=== PATIENT | female | born 1955 | race Caucasian/White ===

== ENCOUNTER 2020-12-13 10:18 | Outpatient (CLI) | payer MEDICARE, SELFPAY ==
--- NOTE | ~2020-12-13 | MM_ITS ---
EXAMINATION: MM screening [facility] BI w staci HISTORY: Screening mammogram TECHNIQUE: Craniocaudal and mediolateral oblique 3-D tomosynthesis images were obtained and synthetic 2-D images were generated. CAD analysis was submitted and interpreted. COMPARISON: Serial mammographic images dating back to 06/22/2008 BREAST PARENCHYMAL COMPOSITION: There are scattered areas of fibroglandular density. FINDINGS: There is architectural distortion in the posterior mid to upper breasts bilaterally, likely related to history of prior reportedly benign breast biopsies, stable in appearance since 06/22/2008 No interval suspicious mass or new architectural distortion or significant new or developing density is noted otherwise.. IMPRESSION: 1. No mammographic evidence of malignancy. 2. Recommend routine screening mammography in one year. BI-RADS Category 2: Benign finding(s). Reviewed, dictated and finalized at location A.
== END 2020-12-13 10:19 | disposition home or self-care (01) ==
PROVIDERS: Visit Provider Nurse Practitioner
DX: Z12.31 Encounter for screening mammogram for malignant neoplasm of breast (principal)
CPT/HCPCS: 77063; 77067

== ENCOUNTER 2022-05-01 07:35 | Outpatient (CLI) | payer MEDICARE, SELFPAY ==
--- NOTE | ~2022-05-01 | DEXA_ITS ---
Bone Density Report Name: TRACY MONTAÑO Age: 67 Sex: Female Ethnicity: White Date of : 1955 Indication: osteopenia; height loss; postmenopausal Referring Provider: TOMAS ALLISON Study: Bone densitometry was performed. Exam Date: May 01, 2022 Accession number: [id number] Bone Density: Region BMD T-score Z-score Classification AP Spine(L1-L4) 0.907 -1.3 0.6 Osteopenia Femoral Neck (Left) 0.594 -2.3 -0.7 Osteopenia Total Hip (Left) 0.699 -2.0 -0.7 Osteopenia Femoral Neck (Right) 0.610 -2.2 -0.5 Osteopenia Total Hip (Right) 0.717 -1.8 -0.5 Osteopenia Total Hip Mean 0.708 -1.9 -0.6 Osteopenia World Health Organization criteria for BMD impression classify patients as: Normal (T-score at or above -1.0), Osteopenia (T-score between -1.0 and -2.5), or Osteoporosis (T-score at or below -2.5). 10-year Fracture Risk(1): Major Osteoporotic Fracture 12% Hip Fracture 2.3% Reported Risk Factors: [place] (), Neck BMD=0.594, BMI=26.8 (1) FRAX(R) Version 3.08. Fracture probability calculated for an untreated patient. Fracture probability may be lower if the patient has received treatment. Previous Exams: Region Exam Age BMD T-score BMD Change BMD Change Date g/cm2 vs Baseline vs Previous AP Spine (L1-L4) 05/01/2022 67 0.907 -1.3 -0.026 (-2.7%) -0.049 (-5.2%) 06/02/2019 64 0.957 -0.8 0.024 (2.5%)* -0.004 (-0.5%) 05/23/2017 62 0.961 -0.8 0.028 (3.0%)* 0.028 (3.0%)* 04/18/2015 59 0.933 -1.0 Total Hip(Left) 05/01/2022 67 0.699 -2.0 -0.055 (-7.3%) -0.087 (-11.1% 06/02/2019 64 0.786 -1.3 0.032 (4.3%)* 0.053 (7.2%)* 05/23/2017 62 0.734 -1.7 -0.020 (-2.7%) -0.020 (-2.7%) 04/18/2015 59 0.754 -1.5 Total Hip(Right) 05/01/2022 67 0.717 -1.8 -0.026 (-3.5%) -0.057 (-7.4%) 06/02/2019 64 0.774 -1.4 0.031 (4.2%)* 0.045 (6.2%)* 05/23/2017 62 0.729 -1.7 -0.014 (-1.8%) -0.014 (-1.8%) 04/18/2015 59 0.743 -1.6 *Denotes significance at 95% confidence level, LSC for AP Spine = 0.022 g/cm2, LSC for Total Hip = 0.027 g/cm2 Clinical Information Provided by Patient: Has used the following medications: Vitamin D Patient maximum height was 61 Menopause Age: 43 No regular weight bearing exercise Drinks caffeinated beverages Onset of menses at age 11 Number of children 1 Impression: The patient has low bone mass, based on the Left Femoral Neck T-scor
--- NOTE | ~2022-05-01 | MM_ITS ---
EXAMINATION: MM screening [facility] BI w staci HISTORY: .. TECHNIQUE: Craniocaudal and mediolateral oblique 3-D tomosynthesis images were obtained and synthetic 2-D images were generated. CAD analysis was submitted and interpreted. COMPARISON: Serial bilateral screening mammograms dating back to 05/23/2017 BREAST PARENCHYMAL COMPOSITION: There are scattered areas of fibroglandular density. FINDINGS: Chronic stable fibroglandular asymmetry; history of bilateral benign biopsies 30 years ago. There is no evidence of suspicious mass, calcification, or architectural distortion to suggest malig teo in either breast. There has been no suspicious interval change. IMPRESSION: 1. No mammographic evidence of malignancy. 2. Recommend routine screening mammography in one year. BI-RADS Category 2: Benign finding(s). Reviewed, dictated and finalized at location A. D SECURITY PROFESSIONAL
== END 2022-05-01 07:36 | disposition home or self-care (01) ==
PROVIDERS: PCP Family Medicine; Visit Provider Obstetrics & Gynecology Gynecology
DX: Z12.31 Encounter for screening mammogram for malignant neoplasm of breast (principal); Z78.0 Asymptomatic menopausal state; M85.88 Other specified disorders of bone density and structure, other site; M85.852 Other specified disorders of bone density and structure, left thigh; M85.851 Other specified disorders of bone density and structure, right thigh
CPT/HCPCS: 77063; 77067; 77080

== ENCOUNTER 2022-07-31 09:46 | Outpatient (CLI) | payer MEDICARE, SELFPAY ==
--- NOTE | ~2022-07-31 | NM_ITS ---
EXAMINATION: NM stress w perf spect multi DATE: 07/31/2022 11:53 INDICATION: Chest pain, unspecified. TECHNIQUE: Rest images were obtained following intravenous administration of 9.9 mCi Tc99m tetrofosmi n (Qlibri). The patient performed an exercise activity. At peak exercise, 31.7 mCi Tc99m tetrofosmin (Myoview) was administered intravenously, and stress images were obtained. Data was reconstructed in to short axis and horizontal and vertical long axis SPECT images. Gated SPECT images were also obtain ed. COMPARISON: None. FINDINGS: There is no definite reversible or fixed perfusion abnormality to suggest ischemia or infar ction. There is no segmental wall motion abnormality. Left ventricular ejection fraction measures > 70%. IMPRESSION: 1. No definite ischemia or infarct. 2. Normal left ventricular ejection fraction measuring >70%. Reviewed, dictated and finalized at location A. T METAL PRODUCTION WORKER
--- NOTE | 2022-07-31 10:04 | EST_ITS ---
Patient Info Name: Lory Griffin Age: 67 years : 1955 Gender: Female Ht: 60 in Wt: 137 lbs BSA: 1.64 m2 HR: 60 bpm BP: 131 / 66 mmHg Heart Rhythm: Sinus Rhythm Exam Date: 07/31/2022 10:50 AM Exam Location: [facility] Stress Patient Status: Outpatient Admit Date: 07/31/2022 Staff Ordering Physician: Linda Alves MD Attending Provider: Linda Alves MD Exercise Technologist: Malinda Hernandez CT Exercise Physician: Brandyn Randle DO Exam Type: CA stress test treadmill w NM Study Info Indications R07.9 - Chest pain, unspecified A nuclear stress test was performed. Summary 1. 1. Abnormal Sukhdeep exercise stress test for ischemic ST changes by ECG criteria. 2. 2. Stable hemodynamics throughout the test. 3. 3. Nuclear scan to follow and will be reported separately. Please correlate with it. 4. 4. Patient informed of the above results. Protocol: Sukhdeep Stress ECG Details Stage: REST Duration (min): 0 min : 53 sec Speed (mph): 0.0 Grade (%): 0 HR (bpm): 64 SBP (mmHg): 131 DBP (mmHg): 66 METS: --- Stage: REST Duration (min): 4 min : 31 sec Speed (mph): 0.0 Grade (%): 0 HR (bpm): 58 SBP (mmHg): 131 DBP (mmHg): 66 METS: --- Stage: STAGE 1 Duration (min): 1 min : 0 sec Speed (mph): 1.7 Grade (%): 10 HR (bpm): 88 SBP (mmHg): 131 DBP (mmHg): 66 METS: --- Stage: STAGE 1 Duration (min): 2 min : 0 sec Speed (mph): 1.7 Grade (%): 10 HR (bpm): 116 SBP (mmHg): 131 DBP (mmHg): 66 METS: --- Stage: STAGE 1 Duration (min): 3 min : 0 sec Speed (mph): 1.7 Grade (%): 10 HR (bpm): 108 SBP (mmHg): 200 DBP (mmHg): 74 METS: --- Stage: STAGE 2 Duration (min): 1 min : 0 sec Speed (mph): 2.5 Grade (%): 12 HR (bpm): 117 SBP (mmHg): 188 DBP (mmHg): 75 METS: --- Stage: STAGE 2 Duration (min): 2 min : 0 sec Speed (mph): 2.5 Grade (%): 12 HR (bpm): 129 SBP (mmHg): 194 DBP (mmHg): 72 METS: --- Stage: STAGE 2 Duration (min): 3 min : 0 sec Speed (mph): 2.5 Grade (%): 12 HR (bpm): 137 SBP (mmHg): 194 DBP (mmHg): 72 METS: --- Stage: STAGE 3 Duration (min): 0 min : 5 sec Speed (mph): 3.4 Grade (%): 14 HR (bpm): 137 SBP (mmHg): 194 DBP (mmHg): 72 METS: --- Stage: RECOVERY Duration (min): 0 min : 54 sec Speed (mph): 0.0 Grade (%): 0 HR (bpm): 115 SBP (mmHg): 192 DBP (mmHg): 77 METS: --- Stage: RECOVERY Duration (min): 1 min : 54 sec Speed (mph): 0.0 Grade (%): 0 HR (bpm): 89 SBP (mmHg): 192 DBP (mmHg): 77 METS: --- Stage: RECOVERY Duration (min): 2 min : 55 sec Speed (mph): 0.0 Grade (%): 0 HR (bpm): 83 SBP (mmHg): 169 DBP (mmHg): 79 METS: --- Stage: RECOVERY Duration (min): 3 min : 4 sec Speed (mph):
== END 2022-07-31 09:47 | disposition home or self-care (01) ==
PROVIDERS: PCP Family Medicine; Visit Provider Family Medicine
DX: R07.9 Chest pain, unspecified (principal); Z82.49 Family history of ischemic heart disease and other diseases of the circulatory system
CPT/HCPCS: 78452; 93017; A9502

== ENCOUNTER 2024-05-18 07:51 | Outpatient (CLI) | payer MEDICARE, SELFPAY ==
--- NOTE | ~2024-05-18 | XR_ITS ---
EXAMINATION: XR lumbar spine min 4V DATE: 05/18/2024 08:23 INDICATION: Low back pain, unspecified. TECHNIQUE: 5 views of lumbar spine were obtained. COMPARISON: Lumbar spine radiographs 03/20/2019 FINDINGS: There is 9 degrees levocurvature of thoracolumbar spine. There is 3 mm anterolisthesis of L 4 on L5. There is mild chronic anterior wedging of T11 vertebral body. There is severely decreased di sc height at L1-L2 and L5-S1. There is multilevel facet joint osteoarthritis, severe bilaterally at L 4-L5 and L5-S1. IMPRESSION: 1. Severe lower lumbar spondylosis. Reviewed, dictated and finalized at location A. ODITY MANAGEMENT SPECIALIST
--- NOTE | ~2024-05-18 | XR_ITS ---
XR hip LT min 2V Ordering provider: Linda Alves MD History: . M25.552 - Pain in left hip . Comparison: None. FINDINGS: BONES: No acute fracture or dislocation. HIP JOINT SPACES: Mild to moderate osteoarthritic changes. He SACROILIAC JOINT SPACES/LUMBAR SPINE: The sacroiliac joint spaces are normal. Mild degenerative fisher es of the visualized lower lumbar spine. PUBIC SYMPHYSIS: Pubic symphysitis. SOFT TISSUES: Normal. IMPRESSION: No acute osseous abnormality pelvis and left hip. Mild to moderate left hip osteoarthritic changes. Reviewed, dictated and finalized at location A. ECTION CLERK
--- NOTE | ~2024-05-18 | XR_ITS ---
XR sacroiliac joints min 3V Ordering provider: Linda Alves MD History: . NON TRAUMA LBP AND LEFT HIP PAIN . Comparison: None. FINDINGS: BONES: No acute fracture or dislocation. JOINTS: The bilateral sacroiliac joint spaces appear well maintained. No bony fusion of the sacroilia c joints or bony erosions. Mild osteoarthritic changes of both hips. SOFT TISSUES: Unremarkable. Pubic symphysitis. Mild degenerative changes of the spine. IMPRESSION: NO ACUTE OSSEOUS ABNORMALITY. NORMAL SACROILIAC JOINTS. Reviewed, dictated and finalized at location A. LE STRAP DRUM OPERATOR
== END 2024-05-18 07:52 | disposition home or self-care (01) ==
PROVIDERS: PCP Family Medicine; Visit Provider Family Medicine
DX: M47.816 Spondylosis without myelopathy or radiculopathy, lumbar region (principal); M16.12 Unilateral primary osteoarthritis, left hip; M53.3 Sacrococcygeal disorders, not elsewhere classified; M54.50 Low back pain, unspecified
CPT/HCPCS: 72110; 72202; 73502

== ENCOUNTER 2025-05-03 14:52 | Outpatient (CLI) | payer MEDICARE, SELFPAY ==
--- NOTE | ~2025-05-03 | DEXA_ITS ---
Bone Density Report Name: TRACY MONTAÑO Age: 70 Sex: Female Ethnicity: White Date of : 1955 Indication: osteopenia; height loss; Referring Provider: TOMAS ALLISON Study: Bone densitometry was performed. Exam Date: May 03, 2025 Accession number: [id number] Bone Density: Region BMD T-score Z-score Classification AP Spine(L1-L4) 0.921 -1.1 1.0 Osteopenia Femoral Neck (Left) 0.596 -2.3 -0.5 Osteopenia Total Hip (Left) 0.709 -1.9 -0.4 Osteopenia Femoral Neck (Right) 0.582 -2.4 -0.6 Osteopenia Total Hip (Right) 0.716 -1.9 -0.3 Osteopenia Total Hip Mean 0.713 -1.9 -0.4 Osteopenia World Health Organization criteria for BMD impression classify patients as: Normal (T-score at or above -1.0), Osteopenia (T-score between -1.0 and -2.5), or Osteoporosis (T-score at or below -2.5). 10-year Fracture Risk(1): Major Osteoporotic Fracture 13% Hip Fracture 3.1% Reported Risk Factors: [place] (), Neck BMD=0.582, BMI=27.3 (1) FRAX(R) Version 3.08. Fracture probability calculated for an untreated patient. Fracture probability may be lower if the patient has received treatment. Previous Exams: Region Exam Age BMD T-score BMD Change BMD Change Date g/cm2 vs Baseline vs Previous AP Spine (L1-L4) 05/03/2025 70 0.921 -1.1 -0.012 (-1.2%) 0.014 (1.5%) 05/01/2022 67 0.907 -1.3 -0.026 (-2.7%) -0.049 (-5.2%) 06/02/2019 64 0.957 -0.8 0.024 (2.5%)* -0.004 (-0.5%) 05/23/2017 62 0.961 -0.8 0.028 (3.0%)* 0.028 (3.0%)* 04/18/2015 59 0.933 -1.0 Total Hip(Left) 05/03/2025 70 0.709 -1.9 -0.045 (-6.0%) 0.009 (1.4%) 05/01/2022 67 0.699 -2.0 -0.055 (-7.3%) -0.087 (-11.1% 06/02/2019 64 0.786 -1.3 0.032 (4.3%)* 0.053 (7.2%)* 05/23/2017 62 0.734 -1.7 -0.020 (-2.7%) -0.020 (-2.7%) 04/18/2015 59 0.754 -1.5 Total Hip(Right) 05/03/2025 70 0.716 -1.9 -0.026 (-3.6%) -0.001 (-0.1%) 05/01/2022 67 0.717 -1.8 -0.026 (-3.5%) -0.057 (-7.4%) 06/02/2019 64 0.774 -1.4 0.031 (4.2%)* 0.045 (6.2%)* 05/23/2017 62 0.729 -1.7 -0.014 (-1.8%) -0.014 (-1.8%) 04/18/2015 59 0.743 -1.6 *Denotes significance at 95% confidence level, LSC for AP Spine = 0.022 g/cm2, LSC for Total Hip = 0.027 g/cm2 Clinical Information Provided by Patient: Has used the following medications: Vitamin D, Calcium Patient maximum height was 61 Menopause Age: 43 No regular weight bearing exercise Drinks caffeinated beverages Onset of menses at age 11 Number of children 1 Impression: The patient has low bone mass, based on the Right Femoral Neck T-score. The patient has an estimated ten-year risk of hip fracture of 3.1% and an estimated ten-year risk of major fracture of 13%, based on the WHO FRAX algorithm. No significant bone loss was observed. Discussion: BONE DENSITY IS LOW AT ONE OR MORE SKELETAL SITES. THE PATIENT'S BMD AND CLINICAL RISK FACTORS CONTRIBUTE TO THIS PATIENT'S INCREASED RISK OF FRACTURE. This patient's lowest T-score is low at one or more skeletal sites. It meets the World Health Organization's (WHO) criteria for ?low bone mass? (T-score between -1.0 and -2.5). The patient's 10-year risk of hip fracture as calculated by FRAX exceeds the threshold where pharmacological therapy is recommended by the National Osteoporosis Foundation (NOF). However, all treatment decisions require clinical judgment and consideration of individual patient factors, including patient preferences, comorbidities, previous drug use, risk factors not captured in the FRAX model (e.g., frailty, falls, vitamin D deficiency, increased bone turnover, interval significant decline in bone density) and possible under or overestimation of fracture risk by FRAX. The patient should follow a healthful lifestyle (good nutrition with adequate calcium and vitamin D, and appropriate weight-bearing exercise). Follow-Up: Consider a repeat BMD and Vertebral Fracture Assessment (VFA) exam in 2 years or sooner if medically necessary, to reassess this patient's status. Reported by: LISA on 05/03/2025 3:51:00 PM. Reviewed, dictated and finalized at location A.
--- NOTE | ~2025-05-03 | MM_ITS ---
EXAMINATION: MM screening [facility] BI w staci HISTORY: Screening TECHNIQUE: Craniocaudal and mediolateral oblique 3-D tomosynthesis images were obtained and synthetic 2-D images were generated. CAD analysis was submitted and interpreted. COMPARISON: Comparison to multiple prior studies sequentially, with oldest reviewed study dated 04/24/2016. BREAST PARENCHYMAL COMPOSITION: Dense: The breasts are heterogeneously dense, which may obscure small masses FINDINGS: There is no evidence of suspicious mass, calcification, or architectural distortion to suggest malignancy in either breast. There has been no suspicious interval change. IMPRESSION: 1. No mammographic evidence of malignancy. 2. Recommend routine screening mammography in one year. BI-RADS Category 1: Negative Reviewed, dictated and finalized at location B. EL WEIGHER
--- OUTSIDE RECORDS SUMMARY | 2025-05-03 14:57 | XMS_ITS | Clinical Summary ---
Author Organization [facility] Address [facility] [place] [address] Care Team Providers Care Sheet Metal Welder Name Role Phone Linda Alves MD Primary Care Provider [phone] Nelson Stacy NP Unavailable [phone] Alfredo Galvan MD Unavailable [phone] Allergies Active Allergy Reactions Criticality Noted Date Comments Ciprofloxacin Nausea only Reaction: Nausea, Erythromycin Nausea only,Headache Reaction: Nausea, Headache, Medications simvastatin (ZOCOR) 20 mg tablet Active ibuprofen (ADVIL,MOTRIN) 200 mg tab/cap PRN Activ e hydroCHLOROthia zide (HYDRODIURIL) 25 mg tablet Active fluticasone propionate (FLONASE) 50 mcg/actuation nasal spray Active cholecalciferol (VITAMIN D-3) 2,000 unit tablet Active famotidine (PEPCID) 10 mg tablet Take 1 tablet (10 mg total) by mouth 2 (two) times a day Active omeprazole (PriLOSEC) 40 mg capsule Take 1 capsule (40 mg total) by mouth daily 08/11/2021 Active sertraline (ZOLOFT) 25 mg tablet Take 1 tablet (25 mg total) by mouth nightly 10/30/2021 Active ALPRAZolam (XANAX) 0.25 mg tablet Take 1 tablet (0.25 mg total) by mouth 2 (two) times a day 03/27/2024 Active Active Problems Problem Noted Date Diagnosed Date Trochanteric bursitis of left hip 03/11/2025 Spondylosis of lumbar region without myelopathy or radiculopathy 06/10/2024 Lumbosacral spondylosis without myelopathy 05/27 Sacroiliitis 05/27/2024 Cholesteatoma of attic of right ear 11/10/2021 Chronic mucoid otitis media of right ear 021 Otitis media 10/23/2016 Assessment & Plan (12/18/2019 1:17 PM CDT): Right ear tube replaced. RTC one year. Mixed conductive and sensori neural hearing loss of both ears 10/23/2016 Arthritis 08/25/2015 Chronic pain 08/25/2015 Osteoarthritis of cervical spine 08/25/2015 Cervical radiculopathy 08/25/2015 Pain of upper extremity 08/10/2015 Cervicalgia 06/29/2015 Notalgia 06/29/2015 Arthralgia of shoulder 04/01/2015 Sensorineural hearing loss (SNHL) of both ears 0 11/09/2009 Cholesteatoma of middle ear and mastoid 11/10/19 10 Encounters Date Type Department Care Team Description 04/14/2025 8:00 AM CDT Office Visit [facility]) - [facility] Medicine ENT [id number] [place] [address] Medical Office Building [address] [place] [address] Vane Tovar NP Impacted cerumen of right ear (Primary Dx); History of ear surgery 04/06/2025 8:23 AM CDT - 04/06/2025 11:59 PM CDT Hospital Encounter [facility] [address] [place] [phone] Nelson Stacy NP Sacroiliitis (Primary Dx) Discharge Disposition: Discharge to home or self care 04/05/2025 Telephone [facility] Medicine Otolaryngology [facility] [place] [address] Kim Roland MS 03/17/2025 Telephone [facility] Pain Management [address] [place] [address] [phone] [place] [address] Halley Brar 03/16/2025 6:51 AM CDT - 03/16/2025 11:59 PM CDT Hospital Encounter [facility] [id number] [place] [id number] Alfredo Galvan MD Sacroiliitis Discharge Disposition: Discharge to home or self care 03/11/2025 9:21 AM CDT - 03/11/2025 11:59 PM CDT Hospital Encounter [facility] [address] [place] [phone] Nelson Stacy NP Sacroiliitis (Primary Dx); Lumbosacral spondylosis without myelopathy; Trochanteric bursitis of left hip Discharge Disposition: Discharge to home or self care from Last 3 Months Surgical History Surgery Date Site/Laterality Comments OK DELIVERY ONLY 06/24/1983 - 06/23/1984 Section - (Added by TW Conv) OK UNLISTED PROCEDURE INNER EAR Inner Ear Surgery - (Added by TW Conv) KNEE SURGERY Right Knee Surgery Right - (Added by TW Conv) KNEE SURGERY Left Knee Surgery Left - (Added by TW Conv) BREAST LUMPECTOMY Bilateral mid Medical History Medical History Date Comments Hypertension High cholesterol Arthritis Anxiety GERD (gastroesophageal reflux disease) Family History Medical History Relation Name Comments Heart disease Father Sacha Family history of cardiac disorder - (Added by TW Conv) Arthritis Mother Rebeka Family history of arthritis - (Added by TW Conv) Heart disease Mother Rebeka Family history of cardiac disorder - (Added by TW Conv) Heart disease Other 1 Family history of cardiac disorder - Relation: Grandparent (Added by TW Conv) Diabetes Other 2 Family history of diabetes mellitus - Relation: Grandparent (Added by TW Conv) Hypertension Other 3 Family history of hypertension - Relation: Grandparent (Added by TW Conv) Blood Clot Sister 1 Family history of blood clots - (Added by TW Conv) Diabetes Sister 2 Family history of diabetes mellitus - (Added by TW Conv) Relation Name Status Comments Father Sacha Mother Rebeka Other 1 Other 2 Other 3 Sister 1 Sister 2 Social History Tobacco Use Types Packs/Day Years Used Date Smoking Tobacco: Never Tobacco Cessation:Counseling Given: Not Answered AUDIT-C Answer Date Recorded Q1: How often do you have a drink containing alc ohol? Monthly or less 05/27/2024 Q2: How many drinks containi ng alcohol do you have on a typical day when you are drinking? 1 or 2 05/27/2024 Q3: How often do you have si x or more drinks on one occasion? Monthly 05/27/2024 Comments No Sex and Gender Information Value Date Recorded Sex Assigned at Not on file Legal Sex Female 6:02 PM BUDGET AND POLICY ANALYST Gender Identity Not on file Sexual Orientation Not on file Last Filed Vital Signs Vital Sign Reading Time Taken Comments Blood Pressure 148/93 04/06/2025 8:28 AM CDT Pulse 69 04/06/2025 8:28 AM CDT Temperature 36.8 C (98.3 F) 03/16/2025 7:01 AM CDT Respiratory Rate 14 04/06/2025 8:28 AM CDT Oxygen Saturation 96% 04/06/2025 8:28 AM CDT Inhaled Oxygen Concentration - - Weight 63 kg (139 lb) 04/14/2025 8:10 AM CDT Height 152.4 cm (5') 04/14/2025 8:10 AM CDT Body Mass Index 27.15 04/14/2025 8:10 AM CDT Plan of Treatment Health Maintenance Due Date Last Done Comments Breast Cancer Screening-Mammogram 1955 Colon Cancer Screening-Colonoscopy 1955 Depression Screening 1955 Hepatitis C Screening 1955 Osteoporosis Screening-Bone Density Scan 1955 DTaP/Tdap/Td Vaccine (1 - Tdap) 1966 Pneumococcal vaccine 65+ (1 of 1 - PCV) 2005 Zoster Vaccine (1 of 2) 2005 Well Visit 65+ 2020 Influenza Vaccine (#1) 2025 9, 04/10/2018, 04/27/2016, Additional history exists Fall Risk Assessment 04/06/2026 04/06/2025 Hepatitis B Screening Completed 11/16/2010 , 06/29/2010, 05/22/2010 Procedures Procedure Name Priority Date/Time Associated Diagnosis Comments PAIN MGMT IMAGING SI JOINT LEFT Schedule Routine, Read Routine (OP Routine) 03/16/2025 7:17 AM CDT Sacroiliitis from Last 3 Months Results * Imaging SI Joint Injection Left ([id number]) (03/16/2025 7:17 AM CDT) Narrative RAD_PACS_CH - 03/16/2025 7:18 AM CDT The images from this study are not interpreted by Radiology. Please refer to the physician's procedure / OR operative note. Nelson Stacy CRANE ENGINEER IMG PAIN MGMT PROCEDURES Eileen l Result RAD_PACS_CH from Last 3 Months Insurance [employer] [facility] [place] [id number] MEDICARE MEDICARE [employer] SENIOR SUPPLEMENT Care Teams Sheet Metal Welder Relationship Specialty Start Date End Date Linda Alves MD PCP - General 10/11/16 Nelson Stacy, CRANE ENGINEER [id number] [address] [address] [place] [address] Nurse Practitioner Pain Management 09/02/24 [place] [phone] [address] [facility] [address] [facility] [place] [address] Consulting Physician Pain Management 09/02/24
== END 2025-05-03 14:53 | disposition home or self-care (01) ==
PROVIDERS: PCP Family Medicine; Visit Provider Obstetrics & Gynecology Gynecology
DX: Z12.31 Encounter for screening mammogram for malignant neoplasm of breast (principal); M85.89 Other specified disorders of bone density and structure, multiple sites; Z78.0 Asymptomatic menopausal state
CPT/HCPCS: 77063; 77067; 77080